=== PATIENT | female | born 1945 | race African-American/Black ===

== ENCOUNTER 2019-01-17 05:32 | Day surgery (SDC) | payer OTHER ==
[~2019-01-17] VITALS: Ht 157.5 cm; Wt 62.6 kg
[~2019-01-17 05:32] MED LIST: ASCOMP WITH CO1 EACH PO; ASPIRIN81 M2 PO; BASE B,POLYETHYL1 GM PO; BEET ROOT PO; BONE ESSENT166.75 MG PO; CYCLOBENZAPRINE5 MG PO; DOXYLAMINE PO; EXCEDRIN CAPLE1 EACH PO; MULTI VITAMIN1 EACH PO; NORVASC10 MG PO; OMEPRAZOLE20 MG PO; TYLENOL EXTRA500 MG PO; ZOFRAN ODT4 MG PO; [UNRECOGNIZED DRUG - OTHER] PO; [UNRECOGNIZED DRUG - REMARK] PO
[2019-01-17 09:19] VITALS: BP 165/77
--- NOTE | 2019-01-17 10:10 | H ---
[facility] [place] [address] [place] [address] HISTORY AND PHYSICAL Name: SHER PRATT Room #: 150-2 [facility] M.R.#: [id number] Admission: 01/17/19 ������������������ Attend Phys: David Rubin MD Discharge: ������������������ Date of : 47 Report #: [id number] THIS REPORT FOR: //name// CC: Josefina Rubin DATE OF SERVICE: 01/17/[address] David Rubin, Dr. Josefina Menendez, Dr. Jean Morrow. CHIEF COMPLAINT: Nausea. HISTORY OF PRESENT ILLNESS: The patient is a 73-year-old female who about 1-1/2 months ago started having a queasy feeling with some nausea. She also had some vertigo when this first started. The queasiness now occurs all the time. She states that the pike she keeps her stomach, the better it feels. No vomiting, fever, chills, diarrhea or stool changes. No common bile duct symptoms. No significant pain. She states sucking on peppermint sometimes does help the queasiness. She has seen Dr. Morrow who did a colonoscopy 2 years ago that reportedly was normal. She also had an EGD 2-3 years ago, the results of which were unknown. She has been on omeprazole on occasion. Dr. Menendez sent her for an abdominal ultrasound on 09/04/2018 at [facility], this showed no dilated ducts within the liver. There is normal portal venous flow. There were two gallstones in the dependent portion of the gallbladder. There was no pericholecystic fluid or sonographic Coreas sign. The common bile duct measured 4 mm. The remaining portion of the exam was normal. Dr. eMnendez recommended surgical consultation for nosing the gallstones. PAST MEDICAL HISTORY: Hypercholesterolemia, migraine headaches, insomnia, hypertension, gastroesophageal reflux disease. PAST SURGICAL HISTORY: Bilateral tubal ligation, tonsillectomy. MEDICATIONS: Norvasc 10 mg p.o. q. day, codeine p.r.n., cyclobenzaprine 5 mg p.o. t.i.d., doxylamine 25 mg p.o. at bedtime p.r.n., Excedrin p.r.n., multivitamin. ALLERGIES: NIACIN, PROPRANOLOL, METOPROLOL, GARLIC, LISINOPRIL, DEMEROL, NAPROXEN, GOLYTELY, TEKTURNA. FAMILY HISTORY: Noncontributory. SOCIAL HISTORY: The patient does not smoke or drink alcohol. REVIEW OF SYSTEMS: Pertinent positives as above. Full review of systems otherwise negative. [address] [address] HISTORY AND PHYSICAL Name: SHER PRATT Room #: 150-2 [facility] M.R.#: [id number] Admission: 01/17/19 ������������������ Attend Phys: David Rubin MD Discharge: ������������������ Date of : 47 Report #: [id number] PHYSICAL EXAMINATION: GENERAL: Well-developed, well-nourished female in no acute distress. VITAL SIGNS: Stable. She is afebrile. Height is 5 feet 2 inches, weighs 140 pounds, BMI of 25.6. HEENT: Sclerae are nonicteric. Mucous membranes moist and pink. No adenopathy. NECK: No thyromegaly. LUNGS: Clear to auscultation bilaterally. excursion. CARDIOVASCULAR: Regular rate and rhythm. No murmurs, S3, S4. No PMI. ABDOMEN: Soft, flat, nontender, no palpable mass, no organomegaly, no hernias, no abdominal incision scars. EXTREMITIES: No clubbing, cyanosis or edema. NEUROLOGIC: Intact with a clear mental status. No focal motor or sensory deficits. IMPRESSION: A 73-year-old female with gallstones, possible biliary colic. I fully discussed with the patient the diagnosis, prognosis and treatment options and I have carefully and thoroughly discussed with the patient that gallbladder surgery may relieve all, some or none of her symptoms. She states she understands and wished to proceed with surgery. PLAN: We will perform laparoscopic cholecystectomy under general endotracheal anesthesia 23-hour observation admission route to [facility]. The procedure and its risks, benefits and possible complications including possible open cholecystectomy were fully discussed with the patient, she states she understands and agrees to proposed surgery. ��������������������������������������������� <ELECTRONICALLY SIGNED> ���������������������������������������� By: David Rubin MD ��������������������������������������������� 01/17/19 1010 1138 1223 David Rubin MD /nt
[2019-01-17] MEDS ORDERED: HYDROCODON-ACE1 EAC7 PO (11:35)
--- NOTE | 2019-01-18 09:35 | EKG ---
[place] [address] [facility] [place] [address] ELECTROCARDIOGRAM REPORT Name: SHER PRATT Room #: [facility].#: [id number] ������������������ Admission: 01/17/19 ������������������ Attend Phys: David Rubin MD Discharge: 01/17/19 ������������������ Date of : 47 Report #: [id number] ����������������������������������������������������������������� [id number] THIS REPORT FOR: //name// [facility] Test Date: 2019-01-17 Test Time: 08:28:25 Pat Name: SHER PRATT Department: Room: 150 2 Gender: F Top Loader: ALISON : 1945 Requested By: David Rubin Order Number: [id number] MD: Angelo Martinez Measurements Intervals [place] Rate: 87 P: 42 ID: [id number] QRS: -1 QRSD: 92 T: 71 QT: 411 QTc: 495 Interpretive Statements Sinus rhythm Abnormal R-wave progression, early transition Nonspecific ST segment abnormality Borderline prolonged QT interval Compared to ECG 06/23/2010 04:56:45 No significant changes Electronically Signed On 01-18-2019 9:35:10 CDT by Angelo Martinez [email or web address] ��������������������������������������������� <ELECTRONICALLY SIGNED> ���������������������������������������� By: Angelo Martinez MD, [facility] ��������������������������������������������� 01/18/19 0935 0828 Angelo Martinez MD, [facility] /EPI
--- NOTE | 2019-01-18 14:06 | PATH ---
[facility] [place] [address] PATHOLOGY RPT PROCEDURE Name: SHER PRATT Room #: DEP [facility] M.R.#: [id number] ������������������ Admission: 01/17/19 ������������������ Date of : 47 Discharge: 01/17/19 Report #: [id number] Path Case #: [id number] [facility] Accession Number: [id number] . 01 Material submitted: . gallbladder - GALLBLADDER . 01 Clinical history: . Gallstones . 02 Diagnosis: Gallbladder, cholecystectomy: - Mild chronic cholecystitis. - Cholelithiasis. (IUV:[place]; 01/18/2019) MBR/01/18/2019 . 02 Electronically signed: . Ligia Marshall MD, Pathologist NPI- [id number] . 01 Gross description: . The specimen is received in formalin, labeled "lima Gaines". Received is an intact gallbladder measuring 9.8 x 2.9 x 2.4 cm in greatest dimensions displaying a pink-massey linares to blue-linares serosal surface. Opening the specimen reveals a velvety, pink-massey, bile-stained mucosa with a gallbladder wall thickness of 0.1 cm. Calculi are present displaying a bright yellow and nodular appearance, and no masses or lesions are noted grossly. Doll Maker sections, to include the proximal margin, are submitted in cassette A1. (CAA; 01/17/2019) QAC/QAC . 02 Pathologist provided ICD-10: K80.10 . 02 CPT . 068290 Specimen Comment: A courtesy copy of this report has been sent to Specimen Comment: [phone], . Specimen Comment: Report sent to DR LAWRENCE / DR ROBERSON Performed at: 01 [place] [id number] [id number] MD Ramos Lentz MD Phone: [phone] Performed at: [address] [address] PATHOLOGY RPT PROCEDURE Name: SHER PRATT Room #: DEP [facility]..#: [id number] ������������������ Admission: 01/17/19 ������������������ Date of : 47 Discharge: 01/17/19 Report #: [id number] Path Case #: [id number] [address] [place] [id number] MD Ligia Marshall MD Phone: [phone]
--- NOTE | 2019-01-19 15:05 | O ---
[facility] [place] [address] OPERATIVE REPORT Name: SHER PRATT Room #: DEP [facility]..#: [id number] Admission: 01/17/19 ������������������ Attend Phys: David Rubin MD Discharge: 01/17/19 ������������������ Date of : 47 Report #: [id number] THIS REPORT FOR: //name// CC: Jean Rubin DATE OF SERVICE: 01/17/[address] David Rubin, Dr. Josefina Menendez, and Dr. Jean Morrow. PREOPERATIVE DIAGNOSES: Cholelithiasis, cholecystitis, biliary colic. POSTOPERATIVE DIAGNOSES: Cholelithiasis, cholecystitis, biliary colic. PROCEDURE: Laparoscopic cholecystectomy. SURGEON: David Rubin MD. STORAGE AND BACKUP ADMINISTRATOR: Claire Keane RN. ANESTHESIA: General. DESCRIPTION OF PROCEDURE: The patient was brought to the operating room and placed on operative table in the supine position. Sequential compression devices were in place for DVT prophylaxis. She received an appropriate preoperative dose of Mefoxin. The patient underwent a general endotracheal anesthesia and the abdomen was then prepped and draped in a sterile fashion. Skin and subcutaneous tissue around the umbilicus was then infiltrated with 0.5% Marcaine. Infraumbilical skin incision was then performed using #11 scalpel blade. Hemostasis obtained using electrocautery. Dissection was carried down through the subcutaneous tissue and the fascia, which was then grasped between 2 Gavin clamps and incised with a curved Roldan scissors. The peritoneum was entered and a pursestring suture of 0 Vicryl was then placed in the fascia. A 12 mm disposable Edwin port was inserted through the opening and held in place with the pursestring suture. Pneumoperitoneum was obtained to a level of 10-15 mmHg. Laparoscope was inserted through this port and exploration was performed, which revealed a somewhat thickened dilated gallbladder with a few adhesions. There were no other intra-abdominal abnormalities. Two lateral 5 mm Surgiport as well as an upper midline 12 mm Surgiport were all inserted under direct visualization after infiltration with 0.5% Marcaine. The gallbladder was then grasped and retracted superiorly and the cystic duct and artery were carefully dissected free. The triangle of safety was clearly identified with a separate cystic duct and artery. Cystic common bile duct junction was clearly identified. The cystic artery was then doubly clipped on each side and divided [address] [address] OPERATIVE REPORT Name: SHER PRATT Room #: DEP [facility]#: [id number] Admission: 01/17/19 ������������������ Attend Phys: David Rubin MD Discharge: 01/17/19 ������������������ Date of : 47 Report #: [id number] with the scissors. The cystic duct was then triply clipped on the common bile duct side and doubly clipped on the gallbladder side and divided with the scissors. The gallbladder was then dissected free from the bed using the hook electrocautery. When approaching the upper portion of the gallbladder near the liver bed, there were several small arteries, which had some vigorous bleeding when encountered. This bleeding was carefully and completely controlled with 3 or 4 clips. Gallbladder was transected and brought out through the periumbilical port and sent as specimen to pathology. The port was then returned to the abdomen. The area was then copiously irrigated with warm saline solution, which was suctioned free and hemostasis was checked and found to be intact. The ports were then all removed under direct visualization, hemostasis intact at each port site. Pneumoperitoneum was released and the periumbilical port was then also removed under direct visualization, hemostasis intact at that port site as well. Periumbilical fascia was then closed using the 0 Vicryl pursestring suture. The upper midline fascia was then closed using a [id number] 0 Vicryl suture. Skin was then closed using interrupted vertical mattress 5-0 nylon sutures and the wounds dressed with Band-Aids. The patient was then awakened from the general endotracheal anesthesia, extubated, and taken to recovery room in good condition. Estimated blood loss was approximately 10 mL and the patient tolerated procedure well. All sponge, lap and instrument counts correct x 2. ��������������������������������������������� <ELECTRONICALLY SIGNED> ���������������������������������������� By: David Rubin MD ��������������������������������������������� 01/19/19 1505 1120 1205 David Rubin MD /nt
== END 2019-01-17 15:00 | disposition home or self-care (01) ==
LOC: TBA 05:32 → OR 05:32
DX: K80.64 Calculus of gallbladder and bile duct with chronic cholecystitis without obstruction (principal); I10 Essential (primary) hypertension; E78.5 Hyperlipidemia, unspecified; G43.909 Migraine, unspecified, not intractable, without status migrainosus; K21.9 Gastro-esophageal reflux disease without esophagitis; Z88.8 Allergy status to other drugs, medicaments and biological substances; Z79.82 Long term (current) use of aspirin; Z79.899 Other long term (current) drug therapy; Z79.891 Long term (current) use of opiate analgesic; Z98.51 Tubal ligation status; Z98.890 Other specified postprocedural states
CPT/HCPCS: 50010; 50101; 50411; 50555; 50558; 51474; 51489; 52266; 53314; 56462; 56524; 56528; 62110; 62900; 70005